=== PATIENT | male | born 1940 | race Caucasian/White ===

== ENCOUNTER 2021-09-13 09:45 | Outpatient (AMB) | payer MEDICARE, BC, SELFPAY ==
[2021-09-13 09:56] VITALS: BP 139/84; PULSE 80; TEMP 36.1; BMI 34.2
--- NOTE | 2021-09-13 09:56 | U.OPVIS1 ---
Intake Vital Signs 09/13/21 09:56 Height 1.88 m Weight 120.826 kg BMI 34.2 BP 139/84 H Blood Pressure Location Left Upper Arm Position Sitting Pulse 80 Pulse Source Monitor Temp 97 F Temp Source Temporal Artery Scan Intake Visit Reasons: Uro Uroflow and Bladder Scan Crop Duster Required: No Is patient in pain?: No Allergy Allergies No Known Allergies Allergy (Verified 09/13/21 09:57) Home Meds Medication Reconciliation insulin detemir U-100 100 unit/mL (3 mL) subcutaneous pen (Levemir FlexTouch U-100 Insulin) 35 unit SQ QDAY #0 03/17/14 [History Confirmed 09/13/21] metformin 1,000 mg tablet (Glucophage) 1,000 mg PO BID #0 tab 03/17/14 [History Confirmed 09/13/21] repaglinide 2 mg tablet (Prandin) 2 mg PO TIDWM #0 tab 03/17/14 [History Confirmed 09/13/21] insulin detemir U-100 100 unit/mL subcutaneous solution (Levemir U-100 Insulin) 40 unit SUB-Q HS #0 vial 08/17/15 [History Confirmed 09/13/21] liothyronine 5 mcg tablet (Cytomel) 10 mcg PO QDAY #0 tab 08/17/15 [History Confirmed 09/13/21] pantoprazole 40 mg tablet,delayed release (Protonix) 40 mg PO QDAY #0 tabsr 08/17/15 [History Confirmed 09/13/21] tamsulosin 0.4 mg capsule (Flomax) 0.4 mg PO TIDPC #0 capsr 05/11/17 [History Confirmed 09/13/21] levothyroxine 150 mcg capsule 150 mcg PO QDAY 10/02/18 [History Confirmed 09/13/21] liraglutide 0.6 mg/0.1 mL (18 mg/3 mL) subcutaneous pen injector (Victoza 3-Esteban) 18 mg SUBCUT QDAY 10/02/18 [History Confirmed 09/13/21] losartan 50 mg tablet 50 mg PO QDAY 10/02/18 [History Confirmed 09/13/21] propranolol 10 mg tablet 10 mg PO QID 10/02/18 [History Confirmed 09/13/21] repaglinide 2 mg tablet 2 mg PO TID 10/02/18 [History Confirmed 09/13/21] apixaban 5 mg tablet (Eliquis) 5 mg PO BID 01/08/19 [History Confirmed 09/13/21] Office Procedures Uro Bladder Scan and Uro Flow My Supervising Practitioner for this visit is:: Mg Gage Bladder Scan and Uro Flow Completed?: Yes Diagnosis: BPH WITH LUTS N40.1 SLOW STREAM R39.12 Uro Level of Care Nursing/Assessment/Reassessment Patient Status: Established Patient Nursing Assessment/Reassessment: Update [facility] data in EMR, Vital Signs and Medication Reconciliation Coordination of Care: Comp Pt/Fam Ed for care Established Patient Point Assignment: 50 Procedure IM Injection: No Transrectal Ultrasound: No
== END 2021-09-13 10:52 | disposition home or self-care (01) ==
LOC: HODURO 09:45
PROVIDERS: PCP Family Medicine; Visit Provider Urology

== ENCOUNTER 2024-07-04 18:05 | Emergency (ER) | payer MEDICARE, BC, SELFPAY ==
[2024-07-04 18:56] VITALS: BP 131/71; PULSE 79; RESP 18; TEMP 37; O2SAT 97
--- NOTE | 2024-07-04 19:39 | EDNOTE_ITS ---
ED Male Genitalurinary RME/HPI General Chief complaint: General Adult/Misc Complain Stated complaint: GROIN PAIN Time Seen by Provider: 07/04/24 19:20 Arrival date/time: 07/04/24 18:05 Limitations: no limitations RME / HPI RME / HPI Narrative: DR. MOLINA MAIN ED EVALUATION: 83 year old male presents to the Emergency Department [facility] with complaint of right groin pain onset 4 weeks. Pain is described as aching and rated mild to moderate in severity. Patient has a small right inguinal hernia that is reducible. Patient denies any of the following: nausea, vomiting, diarrhea, dysuria, testicle pain, or any other symptoms at this time. PMHx: Atrial fibrillation, hypertension, diabetes, kidney stones. Thyroidectomy. Social Hx: No tobacco, alcohol, or substance use. Related Data Home Medications ?Medication ?Instructions ?Recorded ?Confirmed liothyronine 5 mcg tablet (Cytomel) 10 mcg PO QDAY #0 tabs 08/17/15 08/09/23 pantoprazole 40 mg tablet,delayed 40 mg PO QDAY ##0 08/17/15 08/09/23 release (Protonix) tamsulosin 0.4 mg capsule (Flomax) 0.4 mg PO DAILY ##0 05/11/17 08/09/23 losartan 50 mg tablet 100 mg PO QDAY 10/02/18 08/09/23 apixaban 5 mg tablet (Eliquis) 5 mg PO BID 06/13/22 08/09/23 levothyroxine 200 mcg tablet 200 mcg PO QAM 06/13/22 08/09/23 metformin 1,000 mg 24 hr 1,000 mg PO QPM 06/13/22 08/09/23 tablet,extended release (gastric reten.) oxybutynin chloride 10 mg 10 mg PO QDAY 06/13/22 08/09/23 tablet,extended release 24 hr propranolol 20 mg tablet 20 mg PO BID 06/13/22 08/09/23 semaglutide 1 mg/dose (4 mg/3 mL) 1 mg subcut QWEEK 06/13/22 08/09/23 subcutaneous pen injector (Ozempic) atorvastatin 40 mg tablet 40 mg PO QHS 07/04/23 08/09/23 Allergies Allergy/AdvReac Type Severity Reaction Status Date / Time No Known Allergies Allergy Verified 08/20/23 12:10 Review of Systems Review of Systems Systems Reviewed: All systems reviewed, normal except as documented Narrative Review of Systems: GEN: No fever, no chills, no weight loss EYES: No discharge, no visual changes, no pain HEENT: No ear pain, no congestion, no sore throat PULM: No shortness of breath, no cough, no congestion CV: No chest pain, no dyspnea on exertion, no palpitations GI: No nausea, no vomiting, no diarrhea, no pain, no constipation : No frequency, no urgency and no dysuria; + right groin pain/ small hernia MUSC/SKEL: No joint pain, no back pain SKIN: No rash PSYCH: No hallucinations, no depression HEME/LYMPH: No easy bleeding or bruising tendencies NEURO: No weakness, no headache Past Medical History Past Medical History CARDIAC: Positive Cardiac Disorders, Atrial Fibrillation and Hypertension GASTROINTESTINAL: Positive Obstructive Bowel GENITOURINARY: Positive Kidney Stones and Benign Prostatic Hyperplasia MUSCULOSKELETAL: Positive Musculoskeletal Disorders ENDOCRINE: Positive Endocrine Disorders and Diabetes Mellitus Type 2 PSYCHO/SOCIAL: Positive Depression OTHER HISTORY: Positive Cancer Surgical History SURGICAL: Positive Thyroidectomy and Eye Surgery Social History SMOKING STATUS: Never smoker SUBSTANCE USE: does not use ALCOHOL: Never ED Exam General Limitations: Present no limitations General appearance: Present alert and in no apparent distress Head Head exam: Present atraumatic, normocephalic and normal inspection Eye Eye exam: Present normal appearance, PERRL and EOMI ENT ENT exam: Present normal exam, normal oropharynx and mucous membranes moist Neck Neck exam: Present normal inspection, full ROM and trachea midline Chest Chest inspection: Present normal inspection and symmetric chest wall rise Respiratory Respiratory exam: Present normal lung sounds bilaterally Cardiovascular Cardiovascular exam: Present regular rate, normal rhythm and normal heart sounds Abdominal Exam Abdominal exam: Present soft and normal bowel sounds exam: Present other (small right inguinal hernia that is reducible) Extremities Exam Extremities exam: Present normal inspection and full ROM Back Exam Back exam: Present normal inspection and full ROM Neurological Exam Neurological exam: Present alert, oriented X3 and CN II-XII intact Psychiatric Psychiatric exam: Present normal affect and normal mood Skin Skin exam: Present warm, dry, intact and normal color Course Course Course Narrative: 0600: Care signed out to Dr. Madrigal (emergency physician). Past medical, surgical, social and family history reviewed. Vitals and home medications reviewed. Results and treatment plan discussed. They will assume the care of the patient at this time and will follow the patient, pending US abdomen Quality Measures none Orders Category Date Time Status CT Screening NOW Care 07/04/24 23:17 Active Insert IV NOW Care 07/04/24 23:[address] abdomen pelvis w con Stat Exams 07/04/24 23:17 Taken US abdomen Stat Exams 07/05/24 03:30 Ordered US testicular Stat Exams 07/04/24 19:37 Completed CBC Stat Lab 07/04/24 19:55 Completed CMP [Comprehensive Metabolic Panel] Stat Lab 07/04/24 19:55 Completed Urinalysis Stat Lab 07/04/24 19:55 Completed Vital Signs Vital signs: Vital Signs Temperature 98.6 F 07/04/24 18:56 Pulse Rate 79 07/04/24 18:56 Respiratory Rate 18 07/04/24 18:56 Blood Pressure 131/71 H 07/04/24 18:56 Pulse Oximetry (%) 97 07/04/24 18:56 Oxygen Delivery Method Room Air 07/04/24 18:56 Urogenital - Male MDM Narrative MDM Narrative:: IRacquel, am scribing for and in the presence of Dr. Molina. 0351: ?thrombosis versus constriction 2/2 cirrhosis, malignancy. Will likely need to be transferred for endoscopic US or MR angiography. Pending doppler US on whether or not this is a true vein thrombosis. Patient data External records reviewed:: [facility] previous records and EMS form Clinical information provided by:: patient, EMS and family Social determinants that could affect healthcare access:: none Patient has the following chronic illnesses:: Atrial fibrillation, hypertension, diabetes, kidney stones. Thyroidectomy. How is presenting disease/condition affected by chronic disease/condition?: uneffected by Evaluation data The following diagnostics were reviewed and interpreted by me:: lab results and radiology exam(s) Lab and/or radiology exams considered but not ordered:: none Interpretation Summary: Procedure(s): US testicular Accession Number(s): [id number] cc: Marcin Del Angel MD; Josie Molina MD; Rashid Maravilla MD~ Examination: Testicular sonography complete Technique: Multiple high resolution grayscale sonographic images testes, assessment arterial inflow venous outflow Doppler spectral analysis carful analysis Exam date and time: July 04, 2024 2025 hrs. Indications: Right groin pain beginning one month ago Findings: Right testis 3.2 x 1.1 x 2.3 cm Epididymis 25 mm Arterial flow testicle Calcification adjacent to the medial testis 8 mm There is 2. 2-D [place] free fluid in the right abdomen within the right groin Left testis 2.5 x 1.6 x 2.3 cm Epididymis 11 mm Arterial flow testicle. No testicular mass Impression: No testicular torsion or testicular mass Free fluid in the right abdomen extending into the right groin, most consistent with hernia defect, recommend CT scan pelvis with intravenous contrast follow-up Dictated By: Marcin Del Angel MD -------- Telerad Preliminary Report Draft Patient: KRISTINA WHELAN. Record#: [id number] Birthdate: 1940 Age/Sex: 83 / M Location: [facility] Attending Dr: Ordering Physician: Date of Service: Procedure(s): Accession Number(s): cc: ~ CT scan of the abdomen and pelvis with intravenous contrast (axial sections with sagittal and coronal reformats) July 05, 2024 0003 hours Clinical History: Right groin hernia No prior study is available for comparison. Findings: The evaluation is limited due to motion artifact. Bibasilar atelectasis is seen. A small hiatal hernia is present. The gallbladder is distended with dependent hyperdensity within the gallbladder, which may represent sludge versus punctate calculi. There is mild pericholecystic fluid. There is moderate sized ill-defined soft tissue mass in the region of pancreatic body, with the remaining pancreas not clearly visualized. The mass measures approximately 5.9 x 7.6 x 5.8 cm (AP x TR x CC) and is encasing the proximal celiac and superior mesenteric arteries. There is loss of fat planes with the aorta. The mass is also seen infiltrating the distal stomach. The arteries appear patent. The mass is encasing main portal vein at the rodo causing moderate to marked compression. The splenic vein is not visualised, likely occluded. There is heterogeneous attenuation of the spleen. Punctate nonobstructing renal calculi are seen bilaterally. The liver and adrenals are unremarkable. There are nonspecific fluid filled small bowel loops in the abdomen. No evidence of small bowel dilatation. There are occasional colonic diverticula without evidence of diverticulitis. Moderate amount of fecal material is present in the colon. The appendix is not definitively visualized; however, there is no evidence of inflammatory process in the right lower quadrant. There is moderate prostatomegaly indenting the bladder base. Prostatic calcifications are present. The urinary bladder is otherwise unremarkable. There is mild to moderate free fluid in the abdomen and pelvis. There is no free air. The abdominal aorta demonstrates atheromatous calcification without evidence of aneurysm. There is no adenopathy. There is mild diffuse subcutaneous edema. There are small to moderate fat-containing left and fluid containing right inguinal hernias. There is osteopenia. Mild to moderate degenerative changes are identified in the spine. Impression: Moderate sized pancreatic/kiana mass, infiltrating the distal stomach and aorta, encasing the aortic branches, main portal vein and causing moderate to marked compression, suggestive of neoplasm. Recommend clinical correlation, follow-up and further evaluation as clinically indicated. 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 Small to moderate fat-containing left and fluid containing right inguinal hernias. No evidence of incarceration. Distended gallbladder with sludge/punctate calculi and mild pericholecystic fluid, which may be related to ascites. Possibility of acute cholecystitis cannot be excluded. Mild to moderate ascites. Other findings as described above. Discussion Details: Results verbally communicated to : Dr Isak Fontanez at 02:04 AM 07/05/2024 Report Electronically Signed By: Darren Canchola 07/05/2024 2:18:57 AM [EST] Medications / Prescriptions Medications or Prescriptions considered but not ordered:: none Medication administrations:: see above if any Consultations Consultation(s) initiated? (list below): No Diagnosis Urogenital Male Differential Diagnosis: other (inguinal hernia, UTI, cancer, musculoskeletal pain, pancreatitis, pancreatic mass, incarcerated inguinal hernia, nonreducible hernia) Most likely diagnosis given after review of the tests above:: final dx pending at signout Admission Indicated Admission indicated?: not indicated Admission Request Was there a request for admission?: No Disposition Plan Disposition Plan: other (specify) (Signed out to Dr. Madrigal at 0600 pending US abdomen.) Discharge Plan Prescriptions/Referrals Prescriptions/Med Rec: No Action atorvastatin 40 mg tablet 40 mg PO QHS liothyronine [Cytomel] 5 MCG tablet 10 mcg PO QDAY Qty: 0 pantoprazole [Protonix] 40 MG tablet,delayed release (DR/EC) 40 mg PO QDAY Qty: 0 Patient Comments: TO [employer] tamsulosin [Flomax] 0.4 MG capsule,extended release 24hr 0.4 mg PO DAILY Qty: 0 Rx Instructions: take 2 capsules by mouth every day losartan 50 mg Tablet 100 mg PO QDAY oxybutynin chloride 10 mg tablet extended release 24hr 10 mg PO QDAY Patient Comments: TAKE 1 TABLET BY MOUTH EVERY DAY levothyroxine 200 mcg tablet 200 mcg PO QAM Patient Comments: TAKE 1 TABLET BY MOUTH EVERY DAY IN THE MORNING ON AN EMPTY STOMACH propranolol 20 mg tablet 20 mg PO BID Patient Comments: TAKE 1 TABLET BY MOUTH TWICE DAILY metformin 1,000 mg tablet,ER aleisha.retention 24 hr 1,000 mg PO QPM Patient Comments: TAKE 1 TABLET BY MOUTH EVERY DAY WITH THE EVENING MEAL Eliquis 5 mg tablet 5 mg PO BID Patient Comments: TAKE 1 TABLET BY MOUTH TWICE DAILY Rx Instructions: Last filled 01/2022 for 90 days per Anthony Ozempic 1 mg/dose (4 mg/3 mL) pen injector 1 mg SUBCUT QWEEK Patient Comments: INJECT 1 MG UNDER THE SKIN EVERY WEEK Rx Instructions: last filled on 01/2022 per anthony. Referrals: Rashid Maravilla MD [Primary Care Provider] - In 1 week Problem List Clinical Impression: Abdominal mass Patient/Caregiver Discharge Instructions Print Language: Tajik
[2024-07-04 20:06] LABS: Collection Type, Urine Voided; RBC,Urine 0 /hpf (0-3); Squamous Epithelial Cell,Urine 0 /hpf (0-5); WBC,Urine 0 /hpf (0-5)
[2024-07-04 20:11] LABS: Basophils % (Auto) 1 % (0-2.5); Eosinophils # (Auto) 0.1 Thou/mm3 (0.0-0.5); Eosinophils % (Auto) 2 % (0-10); Hematocrit 37.6 % (41.0-53.0); Hemoglobin 12.6 g/dL (13.5-16.0); Immature Granulocytes % (Auto) 0 % (0-0); Immature Granulocytes Auto 0.01 Thou/mm3 (0.00-0.00); Lymphocytes # (Auto) 1.4 Thou/mm3 (1.0-4.8); Lymphocytes % (Auto) 30 % (10-50); Mean Corpuscular HGB Conc 33.5 g/dl (31.0-37.0); Mean Corpuscular Hemoglobin 29.1 pg (25.0-35.0); Mean Corpuscular Volume 87 fL (80-100); Monocytes # (Auto) 0.7 Thou/mm3 (0.0-0.8); Monocytes % (Auto) 15 % (0-12); Neutrophils # (Auto) 2.3 Thou/mm3 (1.8-7.7); Neutrophils % (Auto) 52 % (37-80); Nucleated Red Blood Cell % 0 /100 WBC (0); Platelet Count 190 Thou/mm3 (140-440); RDW Standard Deviation 43.7 fL (35.1-43.9); Red Blood Count 4.33 Miln/mm3 (4.50-5.90); White Blood Count 4.5 Thou/mm3 (3.8-10.6)
--- NOTE | 2024-07-04 20:13 | PC.LAC ---
Pt stood at bedside and had sudden sharp pain to R inguinal areaq. Appoon palpation, a lup was noted to R inguinal area. MD aware. Pt in NAD at this time. Family member is at bedside.
[2024-07-04 20:15] LABS: Bacteria,Urine Rare; Bilirubin,Urine Negative (Negative); Blood,Urine Negative (Negative); Clarity,Urine Clear (Clear/Hazy); Color,Urine Yellow (Lt Yel-Yel); Glucose, Urine Negative (Negative); Hyaline Casts,Urine 1 /hpf (0-1); Ketones,Urine Trace (Negative); Leukocyte Esterase,Urine Negative (Negative); Nitrite,Urine Negative (Negative); PH,Urine 6.5 (5.0-7.0); Protein,Urine Trace (Neg - Trace); Specific Gravity,Urine 1.014 (1.001-1.035); Urobilinogen,Urine Negative mg/dL (0.0-1.0)
[2024-07-04 20:24] VITALS: BP 122/67; PULSE 120; RESP 18; TEMP 36.7; O2SAT 100
[2024-07-04 20:30] LABS: Alanine Aminotransferase 19 U/L (10-49); Albumin, Serum 3.2 gm/dL (3.4-4.8); Albumin/Globulin Ratio 1.4 (1.2-2.2); Alkaline Phosphatase 52 U/L (46-116); Anion Gap 7 (7-16); Aspartate Amino Transferase 29 U/L (0-34); BUN/Creatinine Ratio 22 Ratio (12-20); Bilirubin,Total 0.7 mg/dL (0.3-1.2); Blood Urea Nitrogen 20 mg/dL (9-23); Calcium 10.6 mg/dL (8.3-10.6); Calcium (Corrected) 11.2 mg/dL (8.5-10.1); Carbon Dioxide 29.2 mMol/L (20.0-31.0); Chloride 103 mMol/L (98-107); Creatinine (Component) 0.9 mg/dL (0.6-1.3); Globulin 2.3 gm/dL (2.3-3.5); Glucose 119 mg/dL (74-106); Osmolality,Calculated 281 (275-295); Potassium 3.8 mMol/L (3.4-5.1); Sodium 139 mMol/L (136-145); Total Protein 5.5 gm/dL (5.7-8.2); eGFR > 60 See Note
[2024-07-04 22:54] VITALS: BP 132/75; PULSE 74; RESP 18; O2SAT 96
--- NOTE | 2024-07-04 23:17 | XR_ITS ---
Examination: CT abdomen with intravenous contrast CT pelvis with intravenous contrast 2-D coronal reconstructions 2-D sagittal reconstructions Date and time of exam:July 05, 2024 0003 hrs. Comparison May 04, 2016 Indications: Right groin hernia pain one week. CTDI: vol (mGy) 9.61 DLP: (mGycm) 689 Technique: Multiple axial sections of the abdomen and pelvis have been obtained. 64 slice high-resolution scanner used. 3 mm axial sections have been obtained, post intravenous injection 60 cc [id number] 2-D sagittal, coronal reconstructions obtained. Low dose protocols were performed. One or more of the following dose reduction techniques were used; automated exposure control, adjustment of the mA and/or KV according to patient size, use of iterative reconstruction technique. Findings: Small retrocardiac gastric hernia Distended gallbladder with small gallstones Ascites Fatty infiltration throughout the liver Gastric mucosa is thickened Spleen is irregular in contour Large mass pancreatic head, irregular margins, the mass measuring at least 6 cm in AP dimension This mass surrounds the celiac and superior mesenteric axes The mass surrounds the superior mesenteric vein and part of the portal vein This mass is invading the posterior margin of the stomach The splenic vein is occluded No bowel obstruction Colonic diverticulosis Urinary bladder intact Transverse prostate dimension 5.2 cm Impression: Large mass pancreatic head with extensive invasion as described above
[2024-07-05 01:13] VITALS: BP 133/69; PULSE 63; RESP 16; O2SAT 95
--- NOTE | 2024-07-05 02:19 | PRELIM_ITS ---
CT scan of the abdomen and pelvis with intravenous contrast (axial sections with sagittal and coronal reformats) July 05, 2024 0003 hoursClinical History: Right groin herniaNo prior study is availab le for comparison. Findings:The evaluation is limited due to motion artifact. Bibasilar atelectasis i s seen. A small hiatal hernia is present. The gallbladder is distended with dependent hyperdensity wi thin the gallbladder, which may represent sludge versus punctate calculi. There is mild pericholecyst ic fluid. There is moderate sized ill-defined soft tissue mass in the region of pancreatic body, wit h the remaining pancreas not clearly visualized. The mass measures approximately 5.9 x 7.6 x 5.8 cm (AP x TR x CC) and is encasing the proximal celiac and superior mesenteric arteries. There is loss of fat planes with the aorta. The mass is also seen infiltrating the distal stomach. The arteries appe ar patent. The mass is encasing main portal vein at the rodo causing moderate to marked compression. The splenic vein is not visualised, likely occluded. There is heterogeneous attenuation of the sple en. Punctate nonobstructing renal calculi are seen bilaterally. The liver and adrenals are unremarkab le.There are nonspecific fluid filled small bowel loops in the abdomen. No evidence of small bowel di latation. There are occasional colonic diverticula without evidence of diverticulitis. Moderate amoun t of fecal material is present in the colon. The appendix is not definitively visualized; however, th ere is no evidence of inflammatory process in the right lower quadrant. There is moderate prostatomeg jessica indenting the bladder base. Prostatic calcifications are present. The urinary bladder is otherwis e unremarkable. There is mild to moderate free fluid in the abdomen and pelvis. There is no free air. The abdominal aorta demonstrates atheromatous calcification without evidence of aneurysm. There is n o adenopathy. There is mild diffuse subcutaneous edema. There are small to moderate fat-containing le ft and fluid containing right inguinal hernias. There is osteopenia. Mild to moderate degenerative ch anges are identified in the spine. Impression:Moderate sized pancreatic/kiana mass, infiltrating the distal stomach and aorta, encasing the aortic branches, main portal vein and causing moderate to mar ked compression, suggestive of neoplasm. Recommend clinical correlation, follow-up and further evalua tion as clinically indicated. Occlusion of the splenic vein with heterogeneous attenuation of the spl een. Small to moderate fat-containing left and fluid containing right inguinal hernias. No evidence o f incarceration. Distended gallbladder with sludge/punctate calculi and mild pericholecystic fluid, w hich may be related to ascites. Possibility of acute cholecystitis cannot be excluded. Mild to modera te ascites. Other findings as described above. Discussion Details: Results verbally communicated to : Dr Isak Fontanez at 02:04 AM 07/05/2024 Report Electronically Signed By: Darren Canchola 07/05/2024 2:18:5 7 AM [EST]
--- NOTE | 2024-07-05 03:30 | XR_ITS ---
Examination: Abdomen sonogram, complete Date and time of exam: July 05, 2024 0459 hrs. Indications: Epigastric pain right groin pain flank pain beginning one month ago, clinical diagnosis chronic vein thrombosis. Technique: Multiple real-time grayscale transabdominal sonographic images of the abdomen have been obtained. Findings: Distended gallbladder 26 mm gallbladder sludge ball Gallbladder wall 0.4 cm Common bile duct 0.4 cm Pancreas obscured by bowel gas Aorta mid and distal visualized not enlarged Liver 12.8 cm nodular contour free fluid in the abdomen with right pleural fluid Normal hepatopedal portal venous flow Patent IVC Right kidney 10.9 x 5.1 x 5.0 cm renal cortex 1.5 cm Left kidney 10.9 x 5.9 x 4.5 cm cortex 1.3 cm Moderate renal parenchymal scar formation Spleen 12.7 cm No diagnostic visualization splenic or portal veins Impression: Gallbladder sludge ball, gallbladder wall is 0.4 cm but the patient has ascites Cirrhosis no focal liver lesions
[2024-07-05 04:21] VITALS: BP 152/83; PULSE 71; RESP 16; TEMP 37; O2SAT 95
[2024-07-05 05:18] VITALS: BP 165/90; PULSE 70; RESP 18; TEMP 36.6; O2SAT 98
--- NOTE | 2024-07-05 05:20 | PC.NURSE ---
US tech is in rm . pt appears in no distress.
--- NOTE | 2024-07-05 06:22 | EDNOTE_ITS ---
Emergency Room Addendum Addendum Narrative: 0600: Care assumed from Dr. Molina, the previous shift emergency physician. Past medical, surgical, social and family history reviewed. Vitals and home medications reviewed. I will assume the care of the patient at this time, pending US report. Please refer to the emergency department record for history and examination from initial visit.? EMS notes reviewed by me. Nursing notes reviewed by me. Vital signs reviewed by me. [facility] medical records reviewed by me. I reviewed admission from 05/07/2023 through 05/09/2023 for altered mental status and stroke work up. 07: I had a long discussion with patients daughter Renate, who is the POA. We reviewed all the results, analysis, and treatment plans. 729: I had a long discussion with the patient. He is in agreement with plan to discharge home and follow up with oncologist Dr. Sneed. RADIOLOGY Ordering Physician: Date of Service: Procedure(s): Accession Number(s): cc: ~ Ultrasound Abdomen. July 05, 2024 at 0459 hours Clinical History: 83-year-old with abdominal acute pain, suspected cholecystitis, splenic venous thrombosis. Technique: Grayscale and color flow images of the abdomen were obtained. Hepatic and portal veins were also imaged with color flow. Comparison: Compared with the prior study dated July 05, 2024. Findings: The left liver lobe is not visualized due to bowel gas. The right liver lobe appears cirrhotic. No intrahepatic biliary ductal dilatation is noted. The gallbladder is distended, measuring 9.2 cm. Hyperechoic foci are not identified. There is gallbladder wall thickening, measuring 4 mm. Sonographic Tyson sign is negative. The common bile duct is normal in caliber at 4 mm. No free fluid is demonstrated on the submitted images. The main portal vein is patent and demonstrates hepatopetal flow. The pancreas is not visualized due to bowel gas. The right kidney measures 10.9 x 8.1 x 5 cm with right renal scar formation. The left kidney measures 10.9 x 5.9 x 5.46 cm and is lobulated in appearance. There is no hydronephrosis, and the corticomedullary differentiation is m aintained. The abdominal aorta and inferior vena cava, to the extent visualized, are within normal limits. There is free fluid in the abdominal cavity. Impression: 1. Limited exam due to bowel gas in the epigastric region.The pancreas, splenic vein, celiac artery, proximal aorta, and left liver lobe are not visualized. 2. Distended gallbladder with sludge and mild pericholecystic fluid, possibly r elated to ascites; less likely due to acute cholecystitis. Suggest follow-up with HIDA scan, if clinically indicated. Report Electronically Signed By: Matthew Espinoza 07/05/2024 7:14:30 AM [EST]
--- NOTE | 2024-07-05 07:14 | PRELIM_ITS ---
Ultrasound Abdomen. July 05, 2024 at 0459 hours Clinical History: 83-year-old with abdominal acut e pain, suspected cholecystitis, splenic venous thrombosis.Technique: Grayscale and color flow images of the abdomen were obtained. Hepatic and portal veins were also imaged with color flow.Comparison: Compared with the prior study dated July 05, 2024.Findings:The left liver lobe is not visualized due to bowel gas.The right liver lobe appears cirrhotic. No intrahepatic biliary ductal dilatation is noted.The gallbladder is distended, measuring 9.2 cm. Hyperechoic foci are not identified.There is g allbladder wall thickening, measuring 4 mm.Sonographic Tyson sign is negative.The common bile duct i s normal in caliber at 4 mm.No free fluid is demonstrated on the submitted images.The main portal vei n is patent and demonstrates hepatopetal flow.The pancreas is not visualized due to bowel gas.The rig ht kidney measures 10.9 x 8.1 x 5 cm with right renal scar formation.The left kidney measures 10.9 x 5.9 x 5.46 cm and is lobulated in appearance.There is no hydronephrosis, and the corticomedullary dif ferentiation is maintained.The abdominal aorta and inferior vena cava, to the extent visualized, are within normal limits.There is free fluid in the abdominal cavity.Impression:1. Limited exam due to nhung wel gas in the epigastric region.The pancreas, splenic vein, celiac artery, proximal aorta, and left liver lobe are not visualized.2. Distended gallbladder with sludge and mild pericholecystic fluid, po ssibly related to ascites; less likely due to acute cholecystitis. Suggest follow-up with HIDA scan, if clinically indicated. Report Electronically Signed By: Matthew Espinoza 07/05/2024 7:14:30 AM [EST]
--- NOTE | 2024-07-05 07:34 | PC.NURSE ---
PT SITTING UP ON STRETCHER, CURRENTLY DENIES ANY PAIN OR DISCOMFORT. VSS ON TELE. PT EXPLAINED HIS RESULTS AND PLAN OF CARE FROM HIS PERSPECTIVE AND IN AGREEMENT. CALL COLON IN REACH, PROVIDER CRRENTLY AT BEDSIDE TALKING TO PT.
[2024-07-05 08:05] VITALS: BP 150/90; PULSE 72; RESP 18; TEMP 36.4; O2SAT 98
--- NOTE | 2024-07-05 08:45 | PC.NURSE ---
pt and daughter requesting to speak with school social worker for more info on hospice care, social economist notified.
--- NOTE | 2024-07-05 16:26 | PC.CC ---
[employer] approached by bedside RN, pt and daughter Renate Gavin [phone] requesting to meet with for added information on hospice services. Pt Artemio Esperanza to ED for groin pain. Pt being d/c with abdominal mass, with D/c instructions to follow up with Dr. Sneed at [facility]. [employer] met with pt and his daughter at bedside. Pt inquiring if he should D/c with hospice this AM, or follow up with Dr. Sneed for treatment options. [employer] informed pt that if he is interested in D/c'ing with hospice services [facility] able to refer pt. [employer] explained that if pt is wanting prognosis and treatment options, following up with Dr. Sneed would given him opportunity to ask further questions. Pts states that he will follow up with Dr. Sneed for prognosis. Pt states he is a DNR and does not want invasive treatment that will make him sick. [employer] provided pt with list of local hospice companies. Pt informed that Dr. Sneed is ophthalmic medical assistant for [place], but pt has the option to chose any hospice agency. Pt inquired about going to skilled facility with hospice. [employer] informed pt that he would need to have shelter health care coverage such as [employer] or private pt coverage for such placement. [employer] will remain available as needed for pt care and staff support.
== END 2024-07-05 09:41 | disposition home or self-care (01) ==
PROVIDERS: Emergency Medicine; Emergency Provider Emergency Medicine; PCP Family Medicine
DX: K82.8 Other specified diseases of gallbladder (principal); K86.89 Other specified diseases of pancreas
CPT/HCPCS: 36415; 74177; 76700; 76870; 80053; 81001; 85025; 99285; A4649; Q9967